=== PATIENT | male | born 1970 | race Caucasian/White ===

== ENCOUNTER → 2019-07-30 10:06 | Outpatient (BNVA) | payer BC, SELFPAY | PROVIDERS: Family Provider Family Medicine; PCP Family Medicine; Visit Provider Family Medicine | DX: E11.9 Type 2 diabetes mellitus without complications (principal) | CPT/HCPCS: 83036 ==

== ENCOUNTER → 2019-12-20 11:20 | Outpatient (BNVA) | payer BC, SELFPAY | PROVIDERS: Family Provider Family Medicine; PCP Family Medicine; Visit Provider Family Medicine | DX: G47.30 Sleep apnea, unspecified (principal); E11.9 Type 2 diabetes mellitus without complications; E29.1 Testicular hypofunction | CPT/HCPCS: 80053; 80061; 83036; 84403; 85025 ==

== ENCOUNTER 2019-12-30 20:00 | Outpatient (CLI) | payer BC, SELFPAY | END 2019-12-30 20:01 | disposition home or self-care (01) | LOC: SLEEP 12-31 08:38 | PROVIDERS: Family Provider Family Medicine; PCP Family Medicine; Visit Provider Family Medicine | DX: G47.30 Sleep apnea, unspecified (principal) | CPT/HCPCS: 95811 ==

== ENCOUNTER → 2020-04-12 15:20 | Outpatient (BNVA) | payer BC, SELFPAY | PROVIDERS: Family Provider Family Medicine; PCP Family Medicine; Visit Provider Family Medicine | DX: E11.9 Type 2 diabetes mellitus without complications (principal); E29.1 Testicular hypofunction; G47.09 Other insomnia | CPT/HCPCS: 80053; 80061; 83036; 84403; 85025 ==

== ENCOUNTER → 2021-01-04 00:01 | Outpatient (BNVA) | payer OTHER, SELFPAY | PROVIDERS: Family Provider Family Medicine; PCP Family Medicine; Visit Provider Family Medicine | DX: E11.9 Type 2 diabetes mellitus without complications (principal); E29.1 Testicular hypofunction; E78.5 Hyperlipidemia, unspecified; G47.09 Other insomnia | CPT/HCPCS: 80053; 80061; 83036; 84403; 84443; 85025 ==

== ENCOUNTER 2021-03-28 03:24 | Emergency (ER) | payer OTHER, SELFPAY ==
--- NOTE | 2021-03-28 03:30 | XRR_ITS ---
PROCEDURE INFORMATION: Exam: XR Chest Exam date and time: 03/28/2021 3:30 AM Age: 51 years old Clinical indication: Chest pressure; Patient HX: Chest pain TECHNIQUE: Imaging protocol: XR of the chest. Views: 1 view. COMPARISON: CR Chest 1 [place] [id number] 04/20/2019 6:09 PM FINDINGS: Lungs: The lungs are clear bilaterally. Pulmonary vasculature within normal limits. Pleural space: No visible pneumothorax or pleural effusion. Heart/Mediastinum: Cardiomediastinal silhouette contour within normal limits. Bones/joints: No emergent findings identified. XR/XR chest 1V portable [id number] IMPRESSION: 1. No radiographic findings of acute cardiopulmonary disease. Radiation Dose CTDIVOL = (mGy): DLP = (mGy-cm)
--- NOTE | 2021-03-28 03:31 | ECG_ITS ---
[facility] Test Date: 2021-03-28 Pat Name: King Cox Department: Room: Gender: Male Stewardess Supervisor: : 1970 Requested By: Hali Johnston Order Number: [id number] Cedric MD: Wilain Geiger M.D. Measurements Intervals [place] Rate: 58 P: 51 MA: 135 QRS: 49 QRSD: 104 T: 43 QT: 420 QTc: 415 Interpretive Statements SINUS BRADYCARDIA Compared to ECG 04/20/2019 19:39:47 No significant changes Electronically Signed On 03-28-2021 22:42:16 PR MANAGER by Wilian Geiger M.D. [id number]
[2021-03-28 03:33] VITALS: BP 168/89; PULSE 59; RESP 20; TEMP 36.7; O2SAT 96; BMI 44.6
[2021-03-28] MEDS: aspirin 325 mg Tablet PO (04:28)
[2021-03-28 04:33] VITALS: BP 130/80; PULSE 70; RESP 18; O2SAT 97
[2021-03-28 04:59] LABS: D Dimer <= 0.27 ug/mIFEU (0-0.59); Troponin(5th) Baseline 8 ng/L (0-15)
--- NOTE | 2021-03-28 05:02 | W.ED.GENADLT ---
HPI - General Adult General: Chief complaint: Chest Pain Stated complaint: CP, Tightness in chest Time Seen by Provider: 03/28/21 03:30 History of Present Illness: HPI narrative: CC: Chest Pain HPI: This is a [51] yo patient hx of DM presenting to the ED complaining of 2 episodes of chest pressure associated with lightheadedness and shaking. Today, patient took an energy drink and became really shaky experienced chest tightness. Patient became concerned before the episode lasted 15 minutes since then earlier today, patient was also driving when she noticed chest pressure and shakiness despite not taking any caffeinated beverages. He has no associated with shortness of breath, chest pain or dyspnea on exertion. Pain is not tearing in nature and does not radiate to the back. Pain not associated with vomiting or PO intake. Denies any recent sympathomimetic drug use. Patient denies any cough. Denies palpitations, dysphagia, diaphoresis, radiation of pain to bilateral arms, jaw. Denies F/N/V/D. Patient denies any recent immobility, surgery, unilateral leg swelling, or prior PE. Patient denies any orthopnea. Onset: 2 days ago Duration: ongoing for the last 2 days Location: home Severity: mild/moderate Review of Systems Narrative: Constitutional: No fever, no chills. HEENT: No vision changes, no sore throat. CV: +chest pain, no palpitations. PULM: No cough, No dyspnea. GI: No abdominal pain, no N/V/D. : No dysuria, no frequency, no hematuria. MSKEL: No arthralgias, no edema. SKIN: No new rashes, no lesions. NEURO: No headache, no focal weakness. HEME: No easy bleeding or bruising. PSYCH: No change in mood or affect. PFS ED PFSH: Medical History Diabetes mellitus Family History Father Cancer Hypertension Mother Cancer Denies family history of Diabetes CAD (coronary artery disease) Clotting disorder Dementia Chronic kidney disease (CKD) Suicide Bleeding disorder Stroke Social History Smoking and tobacco status: never smoked Alcohol intake: never Adopted: No Household members: spouse Housing: House Marital status: Number of children: 2 Number of grandchildren: 1 Highest education level completed: High School Graduate service: No Current occupational status: employed Pets and animals: Yes Current gender identity: Male Physical Exam Narrative: EXAM NARRATIVE: Head: Atraumatic, normocephalic Eyes: PERRL, EOMI, conjunctiva without injection ENT: Throat without erythema, lesions or exudate, MMM NECK: Supple, trachea midline, no JVD LUNGS: LCTA CV: RRR, S1,S2, no murmurs, rubs, gallops. 2+ peripheral pulses in UEs ABDOMEN: Soft, nontender, nondistended, BS x4, no rigidity, no guarding, no rebound EXTREMITY: Normal ROM, no pitting edema, no calf tenderness to palpation SKIN: No rash or erythema NEURO: Awake and alert. No focal motor deficits. PSYCH: Normal mood and affect. Course Vital Signs: Vital signs: Vital Signs Temperature 98.1 F 03/28/21 03:33 Pulse Rate 70 03/28/21 04:33 Respiratory Rate 18 03/28/21 04:33 Blood Pressure 130/80 03/28/21 04:33 Pulse Oximetry 97 03/28/21 04:33 MDM - General Adult MDM Narrative: Medical decision making narrative: [51]yo patient w/ hx of diabetes presenting to the ED with evaluation of two episodic chest pain with accompanying shaking and anxiety. HDS, pulse 2+ radially bilaterally, no signs of fluid overload, AAOx3, neuro exam intact. Given History and Exam today I have no suspicion for ACS, Pneumothorax, Pneumonia, Pulmonary Embolus, Tamponade, Aortic Dissection or other emergent problems as a cause for this presentation. Workup: ECG, CXR, CBC, BMP, Troponin x 2 Interventions: ASA and nitro EKG showing regular sinus rhythm at HT of [58]. Normal axis. No ST elevations/depressions to suggest coronary occlusion. Normal WI, QRS, QT intervals. Findings: ECG: No overt evidence of STEMI, hyperacute T waves, localizable STD or T wave inversions. No evidence of Brugada?s sign, delta wave, epsilon wave, significantly prolonged QTc, or malignant arrhythmia. No Q waves. Other Labs unremarkable for emergent problems. CXR: Without PTX, PNA, or widened mediastinum Last Stress Test: never Last Heart Catheterization: never HEART Score: 3 (story -1, age - 1, risk factor - 1) Dimer negative [5] On reassessment, the patient is HDS, no complaints of persistent chest pain in the ED after evaluation. ECG is non-ischemic. Workup today is unremarkable. Doubt ACS/PE or other emergent causes of chest pain. Patient appeared to be hemoconcentrated at 17.5 and has given IVF in the emergency room. Case signed out to Dr. Cornejo pending repeat troponin. Lab Data: Labs: Lab Results 03/28/21 03/28/21 03/28/21 04:00 04:00 04:00 WBC 7.1 10^3/uL 10^3/ uL (4.0-10.0) RBC 5.77 10^6/uL H 10 ^6/uL (4.1-5.3) Hgb 17.5 g/dL H g/dL (11.7-16.6) Hct 50.2 % % (42.0-52.0) MCV 87.0 fl fl (80-94) MCH 30.3 pg pg (28.0-34.0) MCHC 34.9 g/dL g/dL (30.0-36.0) RDW 12.0 % L % (12.1-15.1) Plt Count 274 10^3/cmm 10^3 /cmm (130-400) MPV 10.5 fL H fL (7.4-10.4) Neut % (Auto) 52.7 % % Lymph % (Auto) 30.9 % % [place] % (Auto) 11.0 % % Eos % (Auto) 4.5 % % Baso % (Auto) 0.8 % % Neut # (Auto) 3.72 10^3/uL 10^3 /uL (1.8-7.7) Lymph # (Auto) 2.2 10^3/uL 10^3/ uL (0.8-4.8) [place] # (Auto) 0.8 10^3/uL 10^3/ uL (0.2-0.9) Eos # (Auto) 0.3 10^3/uL 10^3/ uL (0.0-0.8) Baso # (Auto) 0.1 10^3/uL 10^3/ uL (0.0-0.1) Nucleated RBC % (a uto) 0 % % Nucleated RBCs # 0.0 /100WBC /100W BC D-Dimer <= 0.27 ug/mIFEU ug/mIFEU (0-0.59) Sodium Chloride Carbon Dioxide BUN Creatinine Glucose Calculated Osmolal ity Calcium Troponin T Baselin e 8 ng/L ng/L (0-15) 03/28/21 04:00 WBC RBC Hgb Hct MCV MCH MCHC RDW Plt Count MPV Neut % (Auto) Lymph % (Auto) [place] % (Auto) Eos % (Auto) Baso % (Auto) Neut # (Auto) Lymph # (Auto) [place] # (Auto) Eos # (Auto) Baso # (Auto) Nucleated RBC % (a uto) Nucleated RBCs # D-Dimer Sodium 137 mmol/L mmol/L (136-145) Chloride 100 mmol/L mmol/L (98-107) Carbon Dioxide 23 mmol/L mmol/L (22-29) BUN 18 mg/dL mg/dL (6-20) Creatinine 1.2 mg/dL mg/dL (0.7-1.2) Glucose 112 mg/dL mg/dL (65-115) Calculated Osmolal ity 287 mOsm/kg mOsm/ kg (285-295) Calcium 8.6 mg/dL mg/dL (8.5-10.5) Troponin T Baselin e Discharge Plan Discharge Condition: Stable Prescriptions: No Action clotrimazole-betamethasone 1-0.05 % cream 1 applic topical BID Qty: 45 RF: 1 celecoxib 200 mg capsule See Rx Instructions .ROUTE .COMPLEX Qty: 60 RF: 2 dicyclomine 20 mg tablet 20 mg PO QID Qty: 120 RF: 3 Jardiance 10 mg tablet See Rx Instructions .ROUTE .COMPLEX Qty: 30 RF: 4 fenofibrate 160 mg tablet See Rx Instructions .ROUTE .COMPLEX Qty: 30 RF: 3 hydrochlorothiazide 25 mg tablet See Rx Instructions .ROUTE .COMPLEX Qty: 30 RF: 2 mecobalamin (vitamin B12) 10,000 mcg recon soln 10,000 mcg IM ONCE Qty: 1 RF: 3 Janumet 50-1,000 mg tablet See Rx Instructions .ROUTE .COMPLEX Qty: 180 RF: 3 temazepam [Restoril] 30 mg capsule 30 mg PO .qhs Qty: 30 RF: 3 testosterone cypionate [Depo-Testosterone] 200 mg/mL oil 100 mg IM .every 2 weeks Qty: 2 RF: 5 (DME) Accu-Chek Shanelle Plus test strp Strip See Rx Instructions .ROUTE .MEDSUPPLY Qty: 100 RF: 3 (DME) blood-glucose meter [Accu-Chek Shanelle Plus Meter] Misc See Rx Instructions .ROUTE .MEDSUPPLY Qty: 1 RF: 0 (DME) C PAP MACHINE/SUPPLIES See Rx Instructions .Route .MEDSUPPLY Qty: 1 RF: 0 tadalafil 20 mg tablet See Rx Instructions .ROUTE .COMPLEX Qty: 30 RF: 0 Referrals: Tina Santamaria MD [Primary Care Provider] - Coding Level of Care Code ED Outside Property Agent for Pricila Palmer
[2021-03-28 05:10] LABS: Basophils # 0.1 10^3/uL (0.0-0.1); Basophils % 0.8 %; Eosinophils # 0.3 10^3/uL (0.0-0.8); Eosinophils % 4.5 %; Hematocrit 50.2 % (42.0-52.0); Hemoglobin 17.5 g/dL (11.7-16.6); Lymphocytes # 2.2 10^3/uL (0.8-4.8); Lymphocytes % 30.9 %; Mean Corpuscular HGB Conc 34.9 g/dL (30.0-36.0); Mean Corpuscular Hemoglobin 30.3 pg (28.0-34.0); Mean Platelet Volume 10.5 fL (7.4-10.4); Monocytes # 0.8 10^3/uL (0.2-0.9); Neutrophils # 3.72 10^3/uL (1.8-7.7); Neutrophils % 52.7 %; Nucleated Red Blood Cells % 0 %; Platelet Count 274 10^3/cmm (130-400); Red Blood Count 5.77 10^6/uL (4.1-5.3); White Blood Count 7.1 10^3/uL (4.0-10.0)
[2021-03-28 05:21] LABS: Blood Urea Nitrogen 18 mg/dL (6-20); Calcium 8.6 mg/dL (8.5-10.5); Carbon Dioxide 23 mmol/L (22-29); Chloride 100 mmol/L (98-107); Glomerular Filtration Rate 64.1 mL/min (90-130); Glucose 112 mg/dL (65-115); Osmolality Calculated 287 mOsm/kg (285-295); Sodium 137 mmol/L (136-145)
[2021-03-28 05:28] LABS: Anion Gap 17.9 (5-19); Potassium 3.9 mmol/L (3.5-5.1)
--- NOTE | 2021-03-28 05:31 | ECG_ITS ---
[facility] Test Date: 2021-03-28 Pat Name: King Cox Department: Room: Gender: Male Hooker Laster: : 1970 Requested By: Hali Johnston Order Number: [id number] Cedric MD: Wilian Geiger M.D. Measurements Intervals [place] Rate: 57 P: 119 VA: 137 QRS: 92 QRSD: 105 T: 91 QT: 449 QTc: 437 Interpretive Statements SINUS BRADYCARDIA BORDERLINE RIGHT AXIS DEVIATION [QRS AXIS > 90] Compared to ECG 03/28/2021 03:31:41 No significant changes Electronically Signed On 03-28-2021 22:49:56 PERL DEVELOPER by Wilian Geiger M.D. [id number]
[2021-03-28] MEDS: sodium chloride 0.9% 1,000 ML 999 ML IV (05:40)
[2021-03-28 06:09] LABS: Troponin 5 2HR 6.86 ng/L (0-15)
[2021-03-28 06:13] LABS: Troponin 5 2HR Delta -1.14 ABS# (0-10)
[2021-03-28 06:42] VITALS: BP 154/95; PULSE 60; RESP 18; O2SAT 95
[2021-03-28 07:26] VITALS: BP 158/94; PULSE 65; RESP 17; O2SAT 96
[2021-03-28 07:45] VITALS: PULSE 64; RESP 19; O2SAT 94
[2021-03-28 08:05] VITALS: BP 146/80; PULSE 64; RESP 19; O2SAT 95
--- NOTE | 2021-03-29 12:38 | DCPLANNER ---
relief manager had message to schedule an outpatient stress test for patient. relief manager faxed signed order to centralized scheduling, who will call patient with appointment information. relief manager also called [facility], spoke with Steffanie, a follow up appointment was scheduled for Friday, April 04, 2021 at 3:[address] Olivas. relief manager called patient and gave him the appointment information.
--- NOTE | 2021-04-13 08:33 | DCPLANNER ---
Patient has a stress test scheduled for Saturday, April 17, 2021 at 9:15. Centralized scheduling will call patient with appointment information.
--- NOTE | 2021-05-04 10:57 | DCPLANNER ---
Patient had a out patient stress test scheduled for 04.17.21 - patient attended Patient had an appointment scheduled with [facility] 04.04.21 - patient attended.
== END 2021-03-28 08:25 | disposition home or self-care (01) ==
PROVIDERS: Emergency Medicine; Emergency Provider Family Medicine; PCP Family Medicine
DX: R07.9 Chest pain, unspecified (principal); E11.9 Type 2 diabetes mellitus without complications
CPT/HCPCS: 71045; 80048; 84484; 85025; 85378; 93005; 96360; 99284; J7030

== ENCOUNTER → 2021-04-13 10:45 | Outpatient (BNVA) | payer OTHER, SELFPAY | PROVIDERS: PCP Family Medicine; Visit Provider Family Medicine | DX: E11.9 Type 2 diabetes mellitus without complications (principal); E78.5 Hyperlipidemia, unspecified; R07.9 Chest pain, unspecified; N52.39 Other and unspecified postprocedural erectile dysfunction | CPT/HCPCS: 80053; 80061; 81000; 83036; 84403; 84443; 85025 ==

== ENCOUNTER 2021-04-17 07:00 | Outpatient (CLI) | payer OTHER, SELFPAY ==
[2021-04-17 07:02] VITALS: BMI 46.0
--- NOTE | 2021-04-17 07:03 | ECG_ITS ---
[facility] Test Date: 2021-04-17 Pat Name: King Cox Department: Room: Gender: Male Cashier General: Lillian ZuñigaMariah : 1970 Requested By: Micah Dale Order Number: [id number] Cedric MD: Richard London M.D. Interpretive Statements NAME OF STUDY: LEXISCAN SESTAMIBI STRESS TEST INDICATION: [Chest Pain, ] Procedure: At the baseline, the blood pressure was 155/85 mmHg with a heart rate of 66 bpm. The electrocardiogram showed normal sinus rhythm, normal axis with normal ST and T's. The Lexiscan was infused over a period of 20 seconds. A total of 0.4 mg of Lexiscan was infused. The stress phase was continued for a total of 5 minutes. Heart rate was at the end of stress phase was 80 bpm and a blood pressure of 165/89 mmHg. The EKG at the peak infusion revealed since normal sinus rhythm with no significant ST-T wave changes. Sestamibi was injected 20 seconds after the Lexiscan infusion. Blood pressure at the end of recovery phase was 178/93 mmHg with a heart rate of 77 bpm. Conclusion: 1. Normal EKG response to Lexiscan infusion 2. No Lexiscan induced chest pain or cardiac arrhythmia. 3. Normal blood pressure and heart rate response. 4. Sestamibi/sestamibi perfusion scan pending; see separate report. Electronically Signed On 05-05-2021 12:36:54 SALES REPRESENTATIVE SUPERVISOR by Richard London M.D. [id number]
--- NOTE | 2021-04-17 07:03 | NMCV_ITS ---
NM devonte perf SPECT r/s* [id number] King Cox Age: 51 Gender: M : 1970 Exam Date: 04/17/2021 08:09 Ordering Phys: Micah Cornejo DO Technologist: KATIE Major Exam Location: [facility] Indications: CHEST PAIN STRESS TEST Please see separate stress test report in [facility] for full findings IMAGE PROTOCOL Rest/Stress 1 Lexiscan Day Radiopharmaceutical Dose (mCi) Administration Site Administered by Rest: Tc-99m 10.5 IV KATIE Hinson Sestamibi Stress:Tc-99m 33.0 IV KATIE Hinson Sestamibi Rest: 17-Apr-2021 60 Discovery 630 Stress: 17-Apr-2021 30 Discovery 630 0.4mg Lexiscan. Images obtained in supine and prone position. SPECT RESULTS Technical Quality: Excellent Raw Data Analysis: Normal Image Corrections: No attenuation or motion correction applied Summed Stress Score: 3 Summed Rest Score: 13 Summed Difference Score: 0 PERFUSION FINDINGS There is a normal sized fixed perfusion defect in the apical wall. This likely represents prior infarct. No evidence of ischemia seen. FUNCTIONAL RESULTS (calculated via Gated SPECT) Stress Image LV EF (%): 56 Stress EDV (mL):147 TID: 1.36 Stress ESV (mL):65 FUNCTIONAL FINDINGS: There is normal left ventricular systolic function. IMPRESSIONS 1. 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 No evidence of ischemia. 2. LV systolic function is normal. 3. TID ratio is elevated that may represent subendocaridal ischemia Richard London MD (Electronically Signed) Final Date: 17 April 2021 11:12 S
[2021-04-17] MEDS: regadenoson 0.4 Mg/5 ml Syringe IVP (08:48)
[2021-04-17 09:03] VITALS: BP 178/93; PULSE 80
== END 2021-04-17 07:01 | disposition home or self-care (01) ==
LOC: CDL 07:01
PROVIDERS: PCP Family Medicine; Visit Provider Family Medicine
DX: R07.9 Chest pain, unspecified (principal); R06.02 Shortness of breath
CPT/HCPCS: 78452; 93017; A9500; J2785

== ENCOUNTER → 2021-11-21 19:18 | Outpatient (BNVA) | payer OTHER, SELFPAY | PROVIDERS: PCP Family Medicine; Visit Provider Family Medicine | DX: E11.9 Type 2 diabetes mellitus without complications (principal); E29.1 Testicular hypofunction; E78.5 Hyperlipidemia, unspecified; F32.A Depression, unspecified | CPT/HCPCS: 80053; 80061; 83036; 84403; 84443; 85025 ==

== ENCOUNTER → 2022-10-22 08:18 | Outpatient (BNVA) | payer SELFPAY | PROVIDERS: PCP Family Medicine; Visit Provider Dermatology | DX: Z01.89 Encounter for other specified special examinations (principal) ==

== ENCOUNTER → 2022-10-29 12:34 | Outpatient (BNVA) | payer SELFPAY | PROVIDERS: PCP Family Medicine; Visit Provider Family Medicine | DX: E29.1 Testicular hypofunction (principal); I10 Essential (primary) hypertension; E78.5 Hyperlipidemia, unspecified; G47.30 Sleep apnea, unspecified; G47.09 Other insomnia; E11.9 Type 2 diabetes mellitus without complications | CPT/HCPCS: 84403 ==

== ENCOUNTER → 2024-01-23 09:28 | Outpatient (BNVA) | payer SELFPAY | PROVIDERS: PCP Family Medicine; Visit Provider Student in an Organized Health Care Education/Training Program | DX: M25.561 Pain in right knee (principal); M25.562 Pain in left knee; G89.29 Other chronic pain; M17.11 Unilateral primary osteoarthritis, right knee | CPT/HCPCS: 73560; 73565 ==

== ENCOUNTER → 2024-08-23 12:57 | Outpatient (BNVA) | payer SELFPAY | PROVIDERS: PCP Nurse Practitioner Family; Visit Provider Nurse Practitioner Family | DX: E11.9 Type 2 diabetes mellitus without complications (principal) | CPT/HCPCS: 80053; 80061; 83036 ==

== ENCOUNTER 2025-03-06 11:13 | Emergency (ER) | payer OTHER, SELFPAY ==
--- OUTSIDE RECORDS SUMMARY | 2024-05-21 05:45 | XMS_ITS | Continuity of Care Document ---
Author Organization [facility] Address [address] [place] [address] Phone Care Team Providers Care Wedding Planning Internship Name Role Phone Jaspal Brown Unavailable Unavailab le Allergies, Adverse Reactions, Alerts Substance Reaction Status Criticality No Known Allergies Active No Inform ation Medications Medication Instructions Dosage Effective Dates (start - stop) Status Comments FENOFIBRATE (unknown strength) Not Available - Active Procedures Procedure Date BMI Documented Above Normal Limit F/U Pl an Doc Advance Directives Directive Yes / No Effective Date File Name No Information Encounters Encounter Description Practice Location Reason(s) For Visit Diagnoses Date Provider Providers Copied on Encounter [facility], [address], [id number], [place] tel:[phone] [facility] Right knee (chief complaint) No Information Juancarlos Shay. [address] [place] [address], [address], [id number] , . tel:[phone] Family History Family Member Type Diagnosis Age At Onset Father Problem (finding) Osteoarthritis Payers Payer name Insurance type Covered libertarian ID Authoriza tion(s) No Information Social History Type Description Quantity Date Captured Comments Alcohol Use Details Unknown Caffeine Use Details Unknown Tobacco Use Status No Information Smoking Status Never smoker Non-Smoking Tobacco Use Details : No Details Available : No Details Available Sex Male Vital Signs Date / Time: Height Weight BMI Pulse Rate Blood Pressure Temperature Respiratory Rate Body Surface Area Head Circumference Head Circ. Percentile Wt./Martínez. Percentile BMI percentile Pulse Ox Inhaled Ox 10:26 AM 71.00 in 145.150 kg (320.00 lbs) 44.6 3 kg/m candier (2) Chief Complaint And Reason For Visit From encounter dated '05/21/2024 10:45'. Right knee (chief complaint). Description: is a year-oldwho presents to the office for evaluation ofpain Reason For Referral Reason For Referral No Information History Of Present Illness Encounter Date Complaint History Of Prese nt Illness Right knee is a year-oldwho presents to the office for evaluation ofpain Functional Status Date Functional Assessmen t No Information Instructions Date Instruction Additional Infor mation No Information Assessments Type Assessment Date No Information Patient Care Teams Name Effective Dates (start - stop) Status Members No Information
[2025-03-06 11:18] VITALS: BP 165/92; PULSE 64; RESP 16; TEMP 36.7; O2SAT 94
--- OUTSIDE RECORDS SUMMARY | 2025-03-06 11:18 | XMS_ITS | Patient Health Record ---
Author Organization [facility] Address [address] [place] [address] Care Team Providers Care 3D Technologist Name Role Phone Tina Santamaria Primary Care Provider [phone] Allergies No Known Allergies Reason For Referral No Information Medications Medication SIG (Take, Route, Frequency, Duration) Notes Start Date End Date Status CeleBREX 200 MG 1 capsule with food Orally Once a day Active Dicyclomine HCl Acti ve Fenofibrate Active Glucosamine Sulfate 500 MG 1 capsule with meals Orally Three times a day Active Lancets - as directed Active Victoza 18 MG/3ML as directed Subcutaneous 1.2 mmg (0.2 mL) subcut daily Active Multivitamin Active Aspirin 81 81 MG 1 tablet Orally Once a day Active Psyllium Husk Active Accu-Chek Active Act jermain Temazepam 30 MG 1 capsule at bedtime as needed Orally Once a day Active Accu-Chek Shanelle Plus w/Device as directed Active Testosterone Cypionate 100 MG/ML 1 mL Intramuscular 0.5 mL IM every 2 weeks Active buPROPion HCl Active Valsartan 320 MG 1 tablet Orally Once a day Active CPAP Active Problems Problem Type SNOMED Code ICD Code Onset Dates Problem Status W/U Status Risk Notes Problem 58253047 Other chronic pa in (G89.29) Active confirmed Problem 7258591578 Pain in right kn ee (M25.561) Active confirmed Problem [id number] Primary osteoarthritis of right knee (M17.11) Active confirmed Vital Signs Heart Rate 64 /min 04/12/2024 Temperature 97.7 degrees Fahrenheit 04/12/2024 Respiratory Rate 18 /min 04/12/2024 Oximetry 97 % 04/12/2024 Blood pressure diastolic 104 mm Hg 04/12/2024 Height 71 in 04/12/2024 Blood pressure systolic 176 mm Hg 04/12/2024 Weight 333.8 lbs 04/12/2024 BMI 46.55 kg/m2 04/12/2024 Encounters Encounter Location Date Provider Diagnosis [id number] [facility], [place] [id number] 04/06/2024 Tina Santamaria [facility] [address], [place] [phone] 04/12/2024 Tina Santamaria [facility] [address] [facility], [place] [phone] 04/12/2024 Tina Santamaria Other chronic pain G89.29 ; Pain in right knee M25.561 and Primary osteoarthritis of right knee M17.11 Assessments Encounter Date Diagnosis (ICD Code) Assessment Notes Treatment Notes Treatment Clinical Notes Section Notes 04/12/2024 Other chronic pain (ICD-10 - G89.29) 04/12/2024 Pain in right knee (ICD-10 - M25.561) 04/12/2024 Primary osteoarthritis of right knee (ICD-10 - M17.11) severe pain that is getting worse. He is not getting any help with the steroid shots. He is now a candidate for a knee replacement since all medical help has failed. He is now a surgical candidate. send to ortho for eval. Plan Of Treatment No Information Medical (General) History Medical History History ICD Code HTN Depression Erectile Dysfunction Hypogonadism Hyperlipidemia Obesity Sleep Apnea DM Surgical History Surgery Date(Month/Year) Hernia Cholecystectomy
--- OUTSIDE RECORDS SUMMARY | 2025-03-06 11:19 | XMS_ITS | Patient Health Record ---
Author Organization [facility] Address [address] [place] [address] Care Team Providers Care Technology Professional Name Role Phone [facility] Primary Care Provider [facility] Unavailable [phone] Allergies No Known Allergies Reason For Referral No Information Medications Medication SIG (Take, Route, Frequency, Duration) Notes Start Date End Date Status buPROPion HCl ER (XL) 300 MG Tablet Extended Release 24 Hour TAKE ONE TABLET BY MOUTH EVERY MORNING Oral; Duration: 30 Active Temazepam 30 MG Capsule TAKE ONE CAPSULE BY MOUTH AT BEDTIME Oral; Duration: 30 Active Dicyclomine HCl 20 MG Tablet TAKE ONE TA BLET BY MOUTH FOUR TIMES DAILY Oral; Duration: 30 Active Valsartan 80 MG Tablet TAKE ONE TABLET B Y MOUTH DAILY. Oral; Duration: 30 Active Testosterone Cypionate 200 MG/ML Solution INJECT 0.5 ML INTRAMUSCULARLY EVERY TWO WEEKS. Diagnosis Unavailable Intramuscular; Duration: 28 Active Celecoxib 200 MG Capsule TAKE ONE CAPSUL E BY MOUTH TWICE DAILY Oral; Duration: 30 Active Fenofibrate 160 MG Tablet TAKE ONE TABLE T BY MOUTH EVERY DAY Oral; Duration: 30 Active hydroCHLOROthiazide 25 MG Tablet TAKE ONE TABLET BY MOUTH EVERY MORNING Oral; Duration: 30 Active Metamucil Clear & Natural Active BD Luer-Gia Syringe 22G X 1 3 ML Miscellaneous USE DIRECTED; Duration: 28 Active Janumet 50-1000 MG Tablet TAKE ONE TABLE T BY MOUTH TWICE DAILY Oral; Duration: 30 Active Social History Tobacco Use: Social History Observation Description Date Details (start date - stop date) Never Smoker NA - NA Social History Tobacco Use: Social Info Question Answer Notes xTobacco Use/Smoking Are you a nonsmoker Problems Problem Type SNOMED Code ICD Code Onset Dates Problem Status W/U Status Risk Notes Problem Type II diabetes mellitus without complication (164165466) Type 2 diabetes mellitus without complication, without long-term current use of insulin (E11.9) Active confirmed Problem 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
--- NOTE | 2025-03-06 11:54 | ECG_ITS ---
[facility]: 2025-[facility]-06 Pat Name: King Cox Department: Room: Gender: Male Wrecker Driver: : 1970 Requested By: Gladys Keller Order Number: [id number] Reading MD: XU WHITE Measurements Intervals [place] Rate: 65 P: 41 MO: 145 QRS: 42 QRSD: 106 T: 41 QT: 390 QTc: 408 Interpretive Statements SINUS RHYTHM Compared to ECG 03/28/2021 05:28:23 Sinus bradycardia no longer present Electronically Signed On 03-06-2025 22:24:18 CDT by XU WHITE [email or web address] [id number]
--- NOTE | 2025-03-06 11:54 | XRR_ITS ---
PROCEDURE INFORMATION: Exam: XR Chest Exam date and time: 03/06/2025 12:53 PM Age: 55 years old Clinical indication: Pain; Chest pressure; Additional info: Chest pain TECHNIQUE: Imaging protocol: Radiologic exam of the chest. Views: 1 view. COMPARISON: CR (CHEST, ) 03/28/2021 3:40 AM FINDINGS: Lungs: Unremarkable. No consolidation. Pleural spaces: Unremarkable. No gross pleural effusion. No pneumothorax. Heart/Mediastinum: Unremarkable. No cardiomegaly. Bones/joints: There are costochondral calcifications. XR/XR chest 1V portable [id number] IMPRESSION: No acute cardiopulmonary process.
--- NOTE | 2025-03-06 11:55 | W.ED.DENTAL ---
HPI - Dental/Oral General: Chief complaint: Dental/Oral Stated complaint: dental pain post extraction, going down neck Time Seen by Provider: 03/06/25 11:41 History of Present Illness: Patient is a 55-year-old gentleman, presents to the emergency room due to left jaw dental pain, blackening of his tooth over the course the last 2 days, recent extraction on Friday, chest tingling, left arm tingling. Patient initially had a posterior molar of his left lower removed on Friday by his dentist. He continued to have issues on , on Friday, however the dental office was not open on Friday. He states that he is miserable, and now has tingling since Friday down his chest from his jaw and to his left arm. As well as his posterior molar dental extraction, the first molar on the back left, has started to turn black. He stated he did not have any issues here. He was concerned it had something to do with his current pain in his jaw, and was also concerned about cardiac. Associated symptoms: Denies ear or mastoid pain or fever(s) Related Data Home Medications ?Medication ?Instructions ?Recorded ?Confirmed psyllium husk 0.52 gram capsule 0.52 g PO DAILY 04/04/21 08/23/24 (Daily Fiber) glucosamine sulfate 500 mg tablet 500 mg PO DAILY 01/23/24 08/23/24 (Glucosamine) multivitamin 1 tab PO DAILY 01/23/24 08/23/24 Previous Rx's ?Medication ?Instructions ?Recorded blood-glucose meter (Accu-Chek #1 ea 05/18/19 Shanelle Plus Meter) C PAP MACHINE/SUPPLIES #1 ea 01/12/20 aspirin 81 mg tablet,delayed 81 mg PO DAILY #30 tabs 03/28/21 release blood sugar diagnostic (Accu-Chek #100 ea 05/28/21 Shanelle Plus test strips) lancets 33 gauge #100 ea 05/30/21 bupropion HCl 300 mg 24 hr tablet, See Rx Instructions .Route 08/23/24 extended release .COMPLEX #90 tabs dicyclomine 20 mg tablet See Rx Instructions .Route 08/23/24 .COMPLEX #90 tabs fenofibrate 160 mg tablet See Rx Instructions .Route 08/23/24 .COMPLEX #90 tabs sildenafil 50 mg tablet (Viagra) 50 mg PO DAILY PRN sexual activity 08/23/24 #10 tabs temazepam 30 mg capsule (Restoril) 30 mg PO .qhs #30 caps 08/23/24 valsartan 160 mg tablet See Rx Instructions .Route 01/14/25 .COMPLEX #30 tabs dapagliflozin propanediol 10 mg See Rx Instructions .Route 02/03/25 tablet (Farxiga) .COMPLEX #90 tabs celecoxib 200 mg capsule See Rx Instructions .Route 02/28/25 .COMPLEX #180 caps clindamycin HCl 300 mg capsule 300 mg PO Q8H 10 days #30 caps 03/06/25 (Cleocin HCl) ketorolac 10 mg tablet 10 mg PO Q8H PRN pain 5 days #14 03/06/25 tabs methocarbamol 750 mg tablet 750 mg PO Q8H PRN muscle spasm #30 03/06/25 tabs Allergies Allergy/AdvReac Type Severity Reaction Status Date / Time No Known Allergies Allergy Verified 08/23/24 09:12 Review of Systems General: Reports: 10 or more systems reviewed and unremarkable except in HPI and below Const: Denies: fever(s), chills or fatigue Eyes: Denies: change in vision, eye discharge or eye redness ENMT: Reports: mouth pain and dental pain; Denies: throat pain, ear or mastoid pain, nasal discharge, post nasal drip or sinus pain Card: Reports: chest pain; Denies: palpitations or swelling of feet/ankles Resp: Denies: dyspnea, non-productive cough or wheezing GI: Reports: nausea; Denies: abdominal pain, vomiting or diarrhea : Denies: flank pain or dysuria Musc: Denies: extremity pain or extremity swelling Skin/Breast: Denies: rash, pruritus or erythema Neuro: Denies: headache(s), numbness in extremities or weakness in extremities Psych: Denies: suicidal ideation or homicidal ideation PFSH ED PFSH: Medical History (Updated 03/06/25 @ 13:10 by DARWIN Duncan) Depression Essential hypertension Erectile dysfunction Hypogonadism in male Hyperlipidemia Obesity (BMI 35.0-39.9 without comorbidity) Sleep apnea Diabetes mellitus Surgical History History of hernia surgery History of cholecystectomy Family History Father Cancer Hypertension Mother Cancer Denies family history of Diabetes CAD (coronary artery disease) Clotting disorder Dementia Chronic kidney disease (CKD) Suicide Bleeding disorder Stroke Social History Smoking and tobacco/nicotine status: never used tobacco/nicotine Alcohol intake: current Alcohol intake frequency: holidays/special occasions only Alcohol type: beer and hard liquor Substance/Drug Use: never Adopted: No Household members: spouse Housing: House Marital status: Number of children: 2 Number of grandchildren: 1 Highest education level completed: High School Graduate service: No Current occupational status: employed Pets and animals: Yes Do you think of yourself as: Straight/Heterosexual Current gender identity: Male Physical Exam Const: COMMON NORMALS: no acute distress and patient oriented x3 GENERAL APPEARANCE: cooperative and comfortable HENMT: COMMON NORMALS: normocephalic, atraumatic, hearing grossly normal bilaterally, EAC's normal, TM's normal bilaterally and Normal external nose present HEAD & SCALP: normal to inspection, normocephalic and atraumatic FACE & SINUS: normal facial exam NOSE: Normal external nose present and Normal nares present EXTERNAL AUDITORY CANAL: EAC's normal TYMPANIC MEMBRANE: TM's normal bilaterally TEETH & GINGIVA IMAGES:  1. blackness 2. missing 3. Recent extraction with black central area and white on lateral side THROAT: posterior oropharynx normal OTHER: No associated edema. No trismus. Eye: COMMON NORMALS: Equal, round and reactive pupils present GENERAL EYE: appearance normal, both eyes and all related structures PUPIL: Yes Equal, round and reactive pupils present Neck/C-Spine: COMMON NORMALS: no lymphadenopathy, supple and No carotid bruits Chest: CHEST: Yes Symmetrical chest wall rise Resp: COMMON NORMALS: normal respiratory effort and clear to auscultation bilaterally EFFORT & INSPECTION: Yes able to speak in complete sentences and Yes symmetric chest movement AUSCULTATION: clear to auscultation bilaterally Cardio: COMMON NORMALS: regular rate and regular rhythm RATE: regular rate RHYTHM: regular rhythm GI: COMMON NORMALS: Normal to inspection, nondistended, normoactive bowel sounds present and Soft to palpation INSPECTION: Yes normal to inspection AUSCULTATION: Yes normoactive bowel sounds PALPATION: Yes Soft to palpation Extremity: COMMON NORMALS: no calf tenderness and no pedal edema Neuro: COMMON NORMALS: patient oriented x3, moves all extremities and gait normal Psych: COMMON NORMALS: mental status grossly normal, Normal thought process present, cooperative, normal affect, speech normal and activity/motor behavior normal SPEECH: Yes normal speech THOUGHT PROCESS: Normal thought process present Skin: COMMON NORMALS: no rashes or lesions noted GENERAL SKIN EXAM: no rashes or lesions noted Course Vital Signs: Vital signs: Vital Signs Temperature 98.1 F 03/06/25 11:18 Pulse Rate 64 03/06/25 11:18 Respiratory Rate 16 03/06/25 11:18 Blood Pressure 165/92 03/06/25 11:18 Pulse Oximetry 94 03/06/25 11:18 Oxygen Delivery Me thod Room Air 03/06/25 11:18 MDM - Dental/Oral Medical Decision Making Patient is 55-year-old gentleman that comes in after a tooth extraction with a change in another tooth, and pain, with tingling sensation in his chest, and left arm. He has risk factors for coronary artery disease, and can sometimes be associated with dental extractions. Will do a routine cardiac screening for rule out treat with changing to clindamycin, and have him have close follow-up with his dentist if he is ruled out. Patient has been ruled out from cardiac perspective. Heart score is 0. This is most likely related to his dental pain. Discussed with patient. Medical Records I reviewed the patient's medical records. Lab Data I reviewed the patient's lab results. 03/06/25 12:17 03/06/25 12:17 Laboratory Results WBC 5.99 10^3/uL (3.29-11.43) 03/06/25 12:17 RBC 5.40 10^6/uL (3.85-5.65) 03/06/25 12:17 Hgb 16.00 g/dL (11.27-16.99) 03/06/25 12:17 Hct 48.2 % (37-53) 03/06/25 12:17 MCV 89.3 fl (82-101) 03/06/25 12:17 MCH 29.6 pg (27-33) 03/06/25 12:17 MCHC 33.2 g/dL (30-55) 03/06/25 12:17 RDW 12.7 % (12.1-15.1) 03/06/25 12:17 Plt Count 267 10^3/cmm (157-399) 03/06/25 12:17 MPV 9.6 fL (7.4-10.4) 03/06/25 12:17 Neut % (Auto) 63.0 % 03/06/25 12:17 Lymph % (Auto) 23.4 % 03/06/25 12:17 [place] % (Auto) 9.7 % 03/06/25 12:17 Eos % (Auto) 3.2 % 03/06/25 12:17 Baso % (Auto) 0.5 % 03/06/25 12:17 Neut # (Auto) 3.78 10^3/uL (1.8-7.7) 03/06/25 12:17 Lymph # (Auto) 1.4 10^3/uL (0.8-4.8) 03/06/25 12:17 [place] # (Auto) 0.6 10^3/uL (0.2-0.9) 03/06/25 12:17 Eos # (Auto) 0.2 10^3/uL (0.0-0.8) 03/06/25 12:17 Baso # (Auto) 0.0 10^3/uL (0.0-0.1) 03/06/25 12:17 Nucleated RBC % (auto) 0 % 03/06/25 12:17 Nucleated RBCs # 0.0 /100WBC 03/06/25 12:17 Sodium 140 mmol/L (136-145) 03/06/25 12:17 Potassium 4.5 mmol/L (3.5-5.1) 03/06/25 12:17 Chloride 102 mmol/L (98-107) 03/06/25 12:17 Carbon Dioxide 25 mmol/L (22-29) 03/06/25 12:17 Anion Gap 17.5 (5-19) 03/06/25 12:17 BUN 19 mg/dL (6-20) 03/06/25 12:17 Creatinine 1.1 mg/dL (0.7-1.2) 03/06/25 12:17 GFR Calculation 69.8 mL/min (90-130) L 03/06/25 12:17 Glucose 117 mg/dL (65-115) H 03/06/25 12:17 Calculated Osmolality 293 mOsm/kg (285-295) 03/06/25 12:17 Calcium 9.3 mg/dL (8.5-10.5) 03/06/25 12:17 Total Bilirubin 0.5 mg/dL (0.15-1.2) 03/06/25 12:17 AST 29 U/L (0-40) 03/06/25 12:17 ALT 44 U/L (0-41) H 03/06/25 12:17 Alkaline Phosphatase 61 U/L (40-130) 03/06/25 12:17 Troponin T Baseline 7 ng/L (0-15) 03/06/25 12:17 Total Protein 7.1 g/dL (6.6-8.7) 03/06/25 12:17 Albumin 4.5 g/dL (3.5-5.2) 03/06/25 12:17 Globulin 2.6 g/dL (1.3-4.6) 03/06/25 12:17 XR interpretation done by ED provider, pending radiology final review ED provider radiology interpretation(s): no acute Discharge Plan Discharge Patient Disposition: Home Clinical Impression: Non-cardiac chest pain, Pain due to dental caries Condition: Stable Prescriptions: New ketorolac 10 mg tablet 10 mg PO Q8H PRN (Reason: pain) 5 Days Qty: 14 0RF methocarbamol 750 mg tablet 750 mg PO Q8H PRN (Reason: muscle spasm) Qty: 30 0RF clindamycin HCl [Cleocin HCl] 300 mg capsule 300 mg PO Q8H 10 Days Qty: 30 0RF No Action (DME) blood-glucose meter [Accu-Chek Shanelle Plus Meter] [facility] [place] See Rx Instructions .ROUTE .MEDSUPPLY Qty: 1 0RF Rx Instructions: As directed psyllium husk [Daily Fiber] 0.52 gram capsule 0.52 g PO DAILY multivitamin Tablet 1 tab PO DAILY glucosamine sulfate [Glucosamine] 500 mg tablet 500 mg PO DAILY Rx Instructions: administer with a meal dicyclomine 20 mg tablet See Rx Instructions .ROUTE .COMPLEX Qty: 90 1RF Dose Instruction: TAKE ONE TABLET BY MOUTH FOUR TIMES DAILY Rx Instructions: TAKE ONE TABLET BY MOUTH DAILY temazepam [Restoril] 30 mg capsule 30 mg PO .qhs Qty: 30 5RF fenofibrate 160 mg tablet See Rx Instructions .ROUTE .COMPLEX Qty: 90 1RF Dose Instruction: TAKE ONE TABLET BY MOUTH EVERY DAY Rx Instructions: TAKE ONE TABLET BY MOUTH EVERY DAY bupropion HCl 300 mg tablet extended release 24 hr See Rx Instructions .ROUTE .COMPLEX Qty: 90 1RF Dose Instruction: TAKE ONE TABLET BY MOUTH EVERY MORNING Rx Instructions: TAKE ONE TABLET BY MOUTH EVERY MORNING sildenafil [Viagra] 50 mg tablet 50 mg PO DAILY PRN (Reason: sexual activity) Qty: 10 5RF Rx Instructions: administer 30 minutes to 4 hours before activity (DME) C PAP MACHINE/SUPPLIES See Rx Instructions .Route .MEDSUPPLY Qty: 1 0RF Rx Instructions: As directed (DME) Accu-Chek Shanelle Plus test strp Strip See Rx Instructions .ROUTE .MEDSUPPLY Qty: 100 3RF Rx Instructions: As directed (DME) lancets 33 gauge misc See Rx Instructions .Route Qty: 100 0RF Rx Instructions: As directed valsartan 160 mg tablet See Rx Instructions .ROUTE .COMPLEX Qty: 30 5RF Dose Instruction: TAKE ONE TABLET BY MOUTH DAILY Rx Instructions: TAKE ONE TABLET BY MOUTH DAILY dapagliflozin propanediol [Farxiga] 10 mg tablet See Rx Instructions .ROUTE .COMPLEX Qty: 90 0RF Dose Instruction: TAKE ONE TABLET BY MOUTH EVERY MORNING Rx Instructions: TAKE ONE TABLET BY MOUTH EVERY MORNING celecoxib 200 mg capsule See Rx Instructions .ROUTE .COMPLEX Qty: 180 0RF Dose Instruction: TAKE ONE CAPSULE BY MOUTH TWICE DAILY Rx Instructions: TAKE ONE CAPSULE BY MOUTH TWICE DAILY aspirin 81 mg tablet,delayed release (DR/EC) 81 mg PO DAILY Qty: 30 0RF Discharge Orders: Discharge ED (Routine); Ordered 03/06/25 Ordered By: Gladys Keller Referrals: Kandy Suarez, [employer]PER[employer] [Primary Care Provider, Family Practice] Patient Instructions: Toothache (ED), Opioid Safety, Pain Management, Patient Portal & Julio Instructions Activity Restrictions/Additional Instructions: - Call your dental office tomorrow for follow-up. - You have been ruled out from a cardiac perspective - We are unable to provide dental care through the ER. Antibiotics were sent to your pharmacy. This will help. The mainstay for dental pain is anti-inflammatories. Hold your Celebrex, and take the ketorolac/Toradol. They are similar, and if you double up, you can have abdominal pain and/or ulcer. You may add Tylenol to this however. Methocarbamol/Robaxin which is a muscle relaxer was sent to the pharmacy which could help as well. You did receive 2 hydrocodone's through the ER, however we cannot provide any more pain medication for dental through the emergency room. -Make sure you take a probiotic or eat active culture yogurt to avoid infectious diarrhea. - Come back to the ED if you cannot open your mouth, have increasing swelling or redness, or temperature greater than 100.4 ?F Thank you for choosing [facility] for your healthcare needs today. You have been screened and evaluated and felt safe for discharge. Health conditions do change or evolve sometimes and as such it is important that you follow up with your Primary Doctor to be re checked, 3-5 days is a general good time frame for follow up. You are always welcome to return to the ED for re assessment if your symptoms are worsening or you have new concerns Print Language: Malagasy Coding Level of Care Code ED Machine Fastener for Pricila Palmer
[2025-03-06] MEDS: HYDROcodone-acetaminophen 10-325 mg Tablet 1 TAB PO (12:05)
[2025-03-06 12:25] LABS: Hematocrit 48.2 % (37-53); Hemoglobin 16.00 g/dL (11.27-16.99); Mean Corpuscular HGB Conc 33.2 g/dL (30-55); Mean Corpuscular Hemoglobin 29.6 pg (27-33); Mean Corpuscular Volume 89.3 fl (82-101); Nucleated Red Blood Cells % 0 %; Platelet Count 267 10^3/cmm (157-399); Red Blood Count 5.40 10^6/uL (3.85-5.65); White Blood Count 5.99 10^3/uL (3.29-11.43)
[2025-03-06 12:42] LABS: Troponin(5th) Baseline 7 ng/L (0-15)
[2025-03-06 12:43] LABS: Alanine Aminotransferase 44 U/L (0-41); Albumin Level 4.5 g/dL (3.5-5.2); Alkaline Phosphatase 61 U/L (40-130); Anion Gap 17.5 (5-19); Aspartate Amino Transferase 29 U/L (0-40); Blood Urea Nitrogen 19 mg/dL (6-20); Calcium 9.3 mg/dL (8.5-10.5); Carbon Dioxide 25 mmol/L (22-29); Chloride 102 mmol/L (98-107); Creatinine Clr Calc Pharmacy 112.1040; Globulin 2.6 g/dL (1.3-4.6); Glucose 117 mg/dL (65-115); Osmolality Calculated 293 mOsm/kg (285-295); Potassium 4.5 mmol/L (3.5-5.1); Sodium 140 mmol/L (136-145); Total Protein 7.1 g/dL (6.6-8.7)
[2025-03-06] MEDS: orphenadrine 30 mg/mL Inj 2 mL 60 MG IM (14:00)
[2025-03-06] MEDS: HYDROcodone-acetaminophen 10-325 mg Tablet 2 TAB PO (14:01)
== END 2025-03-06 14:16 | disposition home or self-care (01) ==
PROVIDERS: Emergency Provider Physician Assistant; PCP Nurse Practitioner Family
DX: R07.89 Other chest pain (principal); K02.9 Dental caries, unspecified; Z79.82 Long term (current) use of aspirin; E78.5 Hyperlipidemia, unspecified; E11.9 Type 2 diabetes mellitus without complications; I10 Essential (primary) hypertension
CPT/HCPCS: 36415; 71045; 80053; 84484; 85025; 93005; 96372; 99285; J1885; J2360; J9999